=== PATIENT | male | born 1970 | race Caucasian/White ===

== ENCOUNTER → 2019-02-28 | Outpatient (CLI) | payer OTHER ==
[~2019-02-28] MED LIST: PERCOCET 5-3251 EACH PO; TAMSULOSIN HCL0.4 M1 PO
== END ==
LOC: CAT 12:56
DX: Z13.6 Encounter for screening for cardiovascular disorders (principal); E78.00 Pure hypercholesterolemia, unspecified; I25.10 Atherosclerotic heart disease of native coronary artery without angina pectoris

== ENCOUNTER → 2020-08-16 | Outpatient (CLI) | payer BC | LOC: ULTRA 07:46 | PROVIDERS: ATTEND Family Medicine | DX: K76.0 Fatty (change of) liver, not elsewhere classified (principal); N20.0 Calculus of kidney; R10.11 Right upper quadrant pain ==

== ENCOUNTER 2020-09-05 19:21 | Emergency (ER) | payer BC ==
[~2020-09-05] VITALS: Ht 188 cm; Wt 93.0 kg
[2020-09-05] MEDS ORDERED: ASA81BEC PO (19:28)
[2020-09-05] MEDS ORDERED: SUPER THERAVIT1 EACH PO (19:29)
[2020-09-05 19:40] LABS: URINE BILIRUBIN NEGATIVE (Negative); URINE BLOOD NEGATIVE (Negative); URINE CLARITY CLEAR; URINE COLOR YELLOW; URINE GLUCOSE-RANDOM* NEGATIVE (Negative); URINE KETONES NEGATIVE (Negative); URINE LEUKOCYTES-REFLEX NEGATIVE (Negative); URINE NITRITE-REFLEX NEGATIVE (Negative); URINE PROTEIN (DIPSTICK) NEGATIVE (Negative); URINE UROBILINOGEN 0.2 E.U./dl (0.2-1.0)
[2020-09-05 19:54] LABS: ABSOLUTE NEUTROPHILS 4.7 thou/uL (1.4-8.2); BASOPHILS 0.7 % (0.0-2.0); EOSINOPHILS 0.3 % (0.0-3.0); HEMATOCRIT 47.2 % (42.0-52.0); HEMOGLOBIN 16.2 gm/dL (14.0-18.0); LYMPHOCYTES 26.1 % (24.0-44.0); MCH 30.2 pg (26.0-34.0); MCHC 34.4 g/dL (28.0-37.0); MONOCYTES 7.2 % (1.0-8.0); PLATELET COUNT 212 thou/uL (150-400); POLYS 65.7 % (36.0-66.0); RBC 5.37 mil/uL (4.50-6.00); RDW 13.9 % (10.5-14.5); WBC 7.1 thou/uL (4.0-11.0)
[2020-09-05 20:15] LABS: ANION GAP 11 mmol/L (7-16); BUN 15 mg/dL (7-18); CALCIUM 9.7 mg/dL (8.5-10.1); CHLORIDE 102 mmol/L (98-107); CO2 25 mmol/L (21-32); CREATININE 1.2 mg/dL (0.7-1.3); GLUCOSE 104 mg/dL (74-106); SODIUM 138 mmol/L (136-145)
[2020-09-05 20:25] LABS: ALBUMIN 4.1 g/dL (3.4-5.0); LIPASE 123 U/L (73-393); MAGNESIUM 2.2 mg/dL (1.8-2.4); SGOT 27 U/L (15-37); SGPT 49 U/L (30-65); TOTAL BILIRUBIN 0.4 mg/dL (0.2-1.0); TOTAL PROTEIN 7.8 g/dL (6.4-8.2); TROPONIN-I <0.06 ng/mL (<0.06)
[2020-09-05 22:35] VITALS: BP 134/94
--- NOTE | 2020-09-06 06:48 | EKG ---
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: PHI : 1970 Requested By: Johnny Flores Order Number: [id number] MD: Lio Santiago Measurements Intervals [place] Rate: 71 P: [place]: QRS: -79 QRSD: 104 T: 59 QT: 408 QTc: 444 Interpretive Statements NSR Left anterior fascicular block Abnormal R-wave progression, late transition ST elev, probable normal early repol pattern No previous ECG available for comparison Electronically Signed On 09-06-2020 6:48:34 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
== END 2020-09-05 22:36 | disposition home or self-care (01) ==
LOC: ER 19:21
PROVIDERS: Emergency Medicine
DX: R53.1 Weakness (principal); R42 Dizziness and giddiness; R61 Generalized hyperhidrosis; R22.2 Localized swelling, mass and lump, trunk; Z98.890 Other specified postprocedural states; Z79.82 Long term (current) use of aspirin; Z79.899 Other long term (current) drug therapy; Z88.1 Allergy status to other antibiotic agents; Z88.0 Allergy status to penicillin

== ENCOUNTER 2020-10-18 19:24 | Emergency (ER) | payer BC ==
[~2020-10-18] VITALS: Ht 182.9 cm; Wt 93.0 kg
[~2020-10-18 19:24] MED LIST changes: -CLARITHROMYCIN500 MG PO; -METRONIDAZOLE500 M4 PO; -PROBIOTIC1 EAC2 PO
[2020-10-18 19:49] LABS: URINE BILIRUBIN NEGATIVE (Negative); URINE BLOOD NEGATIVE (Negative); URINE CLARITY CLEAR; URINE COLOR YELLOW; URINE GLUCOSE-RANDOM* NEGATIVE (Negative); URINE KETONES NEGATIVE (Negative); URINE LEUKOCYTES-REFLEX NEGATIVE (Negative); URINE NITRITE-REFLEX NEGATIVE (Negative); URINE PROTEIN (DIPSTICK) NEGATIVE (Negative); URINE SPECIFIC GRAVITY <= 1.005 (1.005-1.035); URINE UROBILINOGEN 0.2 E.U./dl (0.2-1.0)
[2020-10-18] MEDS ORDERED: METRONIDAZOLE500 M4 PO (19:53)
[2020-10-18] MEDS ORDERED: PROBIOTIC1 EAC2 PO (19:53)
[2020-10-18] MEDS ORDERED: CLARITHROMYCIN500 MG PO (19:53)
[2020-10-18 19:54] LABS: ABSOLUTE NEUTROPHILS 5.1 thou/uL (1.4-8.2); BASOPHILS 0.5 % (0.0-2.0); EOSINOPHILS 0.3 % (0.0-3.0); HEMATOCRIT 48.8 % (42.0-52.0); HEMOGLOBIN 16.5 gm/dL (14.0-18.0); LYMPHOCYTES 23.7 % (24.0-44.0); MCH 29.6 pg (26.0-34.0); MCHC 33.8 g/dL (28.0-37.0); MCV 87.5 fL (80.0-100.0); MONOCYTES 8.1 % (1.0-8.0); PLATELET COUNT 212 thou/uL (150-400); POLYS 67.4 % (36.0-66.0); RBC 5.58 mil/uL (4.50-6.00); RDW 13.3 % (10.5-14.5); WBC 7.6 thou/uL (4.0-11.0)
[2020-10-18 20:02] LABS: ANION GAP 8 mmol/L (7-16); BUN 12 mg/dL (7-18); CALCIUM 9.2 mg/dL (8.5-10.1); CHLORIDE 103 mmol/L (98-107); CO2 26 mmol/L (21-32); CREATININE 1.3 mg/dL (0.7-1.3); GLUCOSE 136 mg/dL (74-106); POTASSIUM 3.7 mmol/L (3.5-5.1); SODIUM 137 mmol/L (136-145)
[2020-10-18 20:11] LABS: ALBUMIN 4.1 g/dL (3.4-5.0); SGOT 25 U/L (15-37); SGPT 50 U/L (16-63); TOTAL BILIRUBIN 0.4 mg/dL (0.2-1.0); TOTAL PROTEIN 7.7 g/dL (6.4-8.2); TROPONIN-I <0.06 ng/mL (<0.06)
[2020-10-18 22:06] VITALS: BP 124/85
--- NOTE | 2020-10-19 12:07 | EKG ---
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: [email or web address] : 1970 Requested By: Johnny Flores Order Number: [id number] MD: Lio Santiago Measurements Intervals [place] Rate: 84 P: 39 ME: 176 QRS: -89 QRSD: 101 T: 53 QT: 383 QTc: 453 Interpretive Statements Sinus rhythm Probable left atrial enlargement Left anterior fascicular block Abnormal R-wave progression, late transition Compared to ECG 09/05/2020 19:50:52 ST (T wave) deviation no longer present Electronically Signed On 10-19-2020 12:07:17 CDT by Lio Santiago [email or web address] <ELECTRONICALLY SIGNED> By: Lio Santiago MD, [facility] 10/19/20 1207 38 38 Lio Santiago MD, FACC /EPI
== END 2020-10-18 22:07 | disposition home or self-care (01) ==
LOC: ER 19:24
PROVIDERS: Emergency Medicine
DX: R53.1 Weakness (principal); R42 Dizziness and giddiness; Z79.899 Other long term (current) drug therapy; Z88.0 Allergy status to penicillin; Z88.1 Allergy status to other antibiotic agents; Z88.2 Allergy status to sulfonamides

== ENCOUNTER → 2020-10-18 | Outpatient (CLI) | payer BC ==
[~2020-10-18] MED LIST changes: +ASA81BEC PO; +ASPIR 8181 M1 PO; +CALCIUM 500 +1 EAC5 PO; +CLARITHROMYCIN500 MG PO; +LIPITOR10 MG PO; +LMTHF-PYRIDOXI1 EACH PO; +METRONIDAZOLE500 M4 PO; +OXYBUTYNIN 5 MG5 M2 PO; +OXYCODONE HCL 55 MG PO; +PEPCID40 MG PO; +PREDNISONE 5 MG5 M1 PO; +PROBIOTIC1 EAC2 PO; +PYRIDIUM200 MG PO; +RECLAST 55 MG/100 M IV; +SUPER THERAVIT1 EACH PO
== END ==
LOC: CAT 08:34
PROVIDERS: ATTEND Family Medicine
DX: R91.8 Other nonspecific abnormal finding of lung field (principal)

== ENCOUNTER 2021-01-25 18:27 | Emergency (ER) | payer BC ==
[~2021-01-25] VITALS: Ht 188 cm; Wt 95.3 kg
[~2021-01-25 18:27] MED LIST changes: +CLARITHROMYCIN500 MG PO; +METRONIDAZOLE500 M4 PO; +PROBIOTIC1 EAC2 PO
[2021-01-25 20:54] VITALS: BP 128/84
== END 2021-01-25 20:56 | disposition home or self-care (01) ==
LOC: ER 18:27
DX: S61.012A Laceration without foreign body of left thumb without damage to nail, initial encounter (principal); Z98.890 Other specified postprocedural states; Z87.442 Personal history of urinary calculi; Z88.1 Allergy status to other antibiotic agents; Z88.2 Allergy status to sulfonamides; Z88.0 Allergy status to penicillin; W26.0XXA Contact with knife, initial encounter; Y93.89 Activity, other specified; Y92.89 Other specified places as the place of occurrence of the external cause; Y99.8 Other external cause status